=== PATIENT | female | born 1975 | race Caucasian/White ===

== ENCOUNTER 2017-09-16 13:07 | Emergency (ER) | payer OTHER ==
[~2017-09-16] VITALS: Ht 162.6 cm; Wt 104.3 kg
[~2017-09-16 13:07] MED LIST: ACYC800 PO; ALBU90OI61 INH; ALPR1 PO; AMLO10 PO; AMLO5 PO; AMOCLA500 PO; AMOCLA875 PO; AMOX500; ATEN100 PO; AXERT; AZIT250 PO; Ambien10 MG PO; BENZ100A PO; BISA10S PR; BUTONI; Baclofen10 MG PO; CARI350 PO; CLIN150; CLIN300 PO; CLON1 PO; CYCL10 PO; DIAZ10; DIAZ5; DIAZ5 PO; Dazidox10 MG; Diclofenac Sodi50 MG PO; Dicyclomine HCl20 MG PO; EXPECTORANT DM PO; FAMO20 PO; HYDACE10B PO; HYDACE5 PO; HYDACE5325 PO; HYDCHL25 PO; HYDRA25 PO; IBUP800; IBUP800 PO; Inderal40 MG PO; LABE100; LABE100 PO; LABE200 PO; LISI20 PO; LISI5 PO; LORA1 PO; LOSARTAN-HCTZ1 EAC1 PO; META800 PO; METCAR500 PO; MIGRANAL; MULVITMINE; Naprosyn500 MG PO; OXYACE5T; OXYACE5T PO; OXYC5 PO; PENVK500 PO; PROM25 PO; PROP10; PROP10 PO; Percocet 5-3251 EACH PO; Prednisone20 MG PO; RXPROM25 PO; Robaxin500 MG PO; Roxicodone5 MG PO; SERT50 PO; SOMA250 MG PO; STADOL; TOPI25; TOPI25 PO; TOPI50 PO; TRAM50 PO; Ultram50 MG PO; Xanax1 MG PO; Xanax2 MG PO; ZOLP10 PO; Zithromax250 MG PO; Zofran Odt4 MG SL; Zofran Odt8 MG PO; [UNRECOGNIZED DRUG - OTHER]
[2017-09-16 13:45] LABS: BASOPHILS ABSOLUTE AUTO 0.01 K/mm3 (0.00-0.23); BASOPHILS PERCENT AUTO 0 % (0-2); EOSINOPHILS ABSOLUTE AUTO 0.14 K/mm3 (0.00-0.68); EOSINOPHILS PERCENT AUTO 2 % (0-6); Hematocrit 41.5 % (33.0-51.0); Hemoglobin 14.1 g/dL (11.5-16.0); IMMATURE GRAN ABSOLUTE AUTO 0.01 K/mm3 (0.00-0.10); IMMATURE GRAN PERCENT AUTO 0 % (0-1); LYMPHOCYTES PERCENT AUTO 32 % (21-46); MONOCYTES PERCENT AUTO 7 % (4-13); Mean Corpuscular HGB 30.4 pg (26.0-34.0); Mean Corpuscular Volume 89 fL (80-100); NEUTROPHILS ABSOLUTE AUTO 4.46 K/mm3 (1.96-9.15); NEUTROPHILS PERCENT AUTO 59 % (41-73); Platelet Count 288 K/mm3 (150-400); RDW Coefficient Variation 12.3 % (11.7-14.2); RDW Standard Deviation 39.9 fL (35.1-46.3); Red Blood Cell Count 4.64 M/mm3 (3.80-5.20); White Blood Cell Count 7.52 K/mm3 (4.00-11.30)
[2017-09-16 13:58] LABS: Alanine Aminotransfer (ALT/SGP 25 U/L (12-78); Albumin, Blood 3.9 g/dL (3.4-5.0); Albumin/Globulin Ratio 0.9 (0.8-1.8); Alk Phos 70 U/L (50-136); Anion Gap 5 mmol/L (6-16); Aspartate Aminotrans (AST/SGOT 13 U/L (12-37); Bilirubin, Total 0.2 mg/dL (0.1-1.0); Blood Urea Nitrogen 16 mg/dL (8-24); Bun/Creatinine Ratio 22.4 (12.0-20.0); CO2, Blood 29 mmol/L (21-32); Calcium, Blood 8.8 mg/dL (8.5-10.1); Chloride, Blood 105 mmol/L (98-108); Creatinine, Blood 0.72 mg/dL (0.40-1.00); Globulin, Blood 4.2 g/dL (2.2-4.0); Glomerular Filtration Rate >60 (60-); Glucose, Blood 101 mg/dL (70-99); Potassium, Blood 3.6 mmol/L (3.5-5.5); Sodium, Blood 139 mmol/L (136-145); Total Protein, Blood 8.1 g/dL (6.4-8.2)
[2017-09-16 18:46] LABS: Source, Urine Clean Catch
[2017-09-16 18:49] LABS: Bilirubin, Urine Neg (Neg); Blood, Urine 1+ (Neg); Glucose Qualitative, Urine Neg (Neg); Ketones, Urine Neg (Neg); Leukocyte Esterase, Urine Neg (Neg); Nitrite, Urine Neg (Neg); Protein, Urine Neg (Neg); Urobilinogen, Urine NORM (Normal)
[2017-09-16 19:09] LABS: Appearance, Urine Hazy (Clear); Color, Urine Yellow (P-Yellow)
[2017-09-16 19:10] LABS: Red Blood Cells, Urine Not Seen /hpf (0-2); Squamous Epithelial Cells Many /hpf (Few); White Blood Cells, Urine 0-2 /hpf (0-5)
[2017-09-16 19:11] LABS: Bacteria Many /hpf
[2017-09-16] MEDS ORDERED: Macrobid 100 M100 MG PO (20:55)
[2017-12-10] MEDS ORDERED: Inderal40 MG PO (16:01)
[2017-12-10] MEDS ORDERED: LOSARTAN-HCTZ1 EAC1 PO (16:02)
[2017-12-10] MEDS ORDERED: Carisoprodol350 MG PO (16:05)
[2018-02-01] MEDS ORDERED: BENTYL (19:13)
[2018-02-01] MEDS ORDERED: SOMA250 MG (19:13)
[2018-02-01] MEDS ORDERED: Lisinopril2.5 MG (19:14)
[2018-02-01] MEDS ORDERED: Acetaminophen-1 EAC2 PO (19:15)
== END 2017-09-16 21:25 | disposition home or self-care (01) ==
LOC: ER 13:07
PROVIDERS: Emergency Medicine
DX: N39.0 Urinary tract infection, site not specified (principal); D25.9 Leiomyoma of uterus, unspecified; Z88.8 Allergy status to other drugs, medicaments and biological substances; Z79.899 Other long term (current) drug therapy; F41.9 Anxiety disorder, unspecified; I10 Essential (primary) hypertension; Z87.891 Personal history of nicotine dependence
CPT/HCPCS: 36415; 80053; 81000; 81001; 81025; 83690; 85025; 87086; 96374; 99283; J1885

== ENCOUNTER → 2017-10-29 | Outpatient (CLI) | payer OTHER ==
[~2017-10-29] MED LIST changes: +ABAT250V; +Acetaminophen-1 EAC2 PO; +BENTYL; +Carisoprodol350 MG PO; +Cipro500 MG PO; +Lisinopril2.5 MG; +Macrobid 100 M100 MG PO; +Percocet 10-321 EACH PO; +SOMA250 MG
[2017-10-30 09:38] LABS: Candida species (DNA Probe) Negative (NEGATIVE); G. vaginalis (DNA Probe) Negative (NEGATIVE); T. vaginalis (DNA Probe) Negative (NEGATIVE)
== END | disposition home or self-care (01) ==
LOC: LAB SHORT 10:24
PROVIDERS: Obstetrics & Gynecology
DX: N76.0 Acute vaginitis (principal)
CPT/HCPCS: 87480; 87510; 87660

== ENCOUNTER 2017-12-12 17:39 | Emergency (ER) | payer OTHER ==
[~2017-12-12] VITALS: Ht 162.6 cm; Wt 99.8 kg
[~2017-12-12 17:39] MED LIST changes: -ABAT250V; -Acetaminophen-1 EAC2 PO; -BENTYL; -Cipro500 MG PO; -Lisinopril2.5 MG; -Percocet 10-321 EACH PO; -SOMA250 MG
== END 2017-12-12 19:14 | disposition home or self-care (01) ==
LOC: ER 17:39
DX: J02.9 Acute pharyngitis, unspecified (principal); Z88.8 Allergy status to other drugs, medicaments and biological substances; Z79.899 Other long term (current) drug therapy; F41.9 Anxiety disorder, unspecified; G43.909 Migraine, unspecified, not intractable, without status migrainosus; I10 Essential (primary) hypertension; Z87.891 Personal history of nicotine dependence
CPT/HCPCS: 87081; 87430; 99283

== ENCOUNTER 2017-12-16 08:18 | Inpatient (IN) | payer OTHER ==
[~2017-12-16] VITALS: Ht 162.6 cm; Wt 102.1 kg
[2017-12-17 08:04] LABS: BASOPHILS ABSOLUTE AUTO 0.01 K/mm3 (0.00-0.23); BASOPHILS PERCENT AUTO 0 % (0-2); EOSINOPHILS PERCENT AUTO 0 % (0-6); Hematocrit 26.7 % (33.0-51.0); Hemoglobin 9.2 g/dL (11.5-16.0); IMMATURE GRAN ABSOLUTE AUTO 0.04 K/mm3 (0.00-0.10); IMMATURE GRAN PERCENT AUTO 0 % (0-1); LYMPHOCYTES ABSOLUTE AUTO 2.71 K/mm3 (0.84-5.20); LYMPHOCYTES PERCENT AUTO 24 % (21-46); MONOCYTES ABSOLUTE AUTO 0.73 K/mm3 (0.16-1.47); MONOCYTES PERCENT AUTO 7 % (4-13); Mean Corpuscular HGB 30.9 pg (26.0-34.0); Mean Corpuscular HGB Conc 34.5 g/dL (31.5-36.5); Mean Corpuscular Volume 90 fL (80-100); Mean Platelet Volume 9.8 fL (9.1-12.4); NEUTROPHILS ABSOLUTE AUTO 7.72 K/mm3 (1.96-9.15); NEUTROPHILS PERCENT AUTO 69 % (41-73); Platelet Count 223 K/mm3 (150-400); RDW Coefficient Variation 12.7 % (11.7-14.2); RDW Standard Deviation 41.5 fL (35.1-46.3); Red Blood Cell Count 2.98 M/mm3 (3.80-5.20); White Blood Cell Count 11.21 K/mm3 (4.00-11.30)
[2017-12-17 08:25] LABS: Anion Gap 8 mmol/L (6-16); Blood Urea Nitrogen 11 mg/dL (8-24); CO2, Blood 26 mmol/L (21-32); Calcium, Blood 8.1 mg/dL (8.5-10.1); Chloride, Blood 107 mmol/L (98-108); Creatinine, Blood 0.79 mg/dL (0.40-1.00); Glomerular Filtration Rate >60 (60-); Glucose, Blood 100 mg/dL (70-99); Potassium, Blood 3.8 mmol/L (3.5-5.5); Sodium, Blood 141 mmol/L (136-145)
[2017-12-19] MEDS ORDERED: Percocet 10-321 EACH PO (17:11)
[2017-12-19] MEDS ORDERED: IBUP800 PO (17:12)
[2017-12-19] MEDS ORDERED: ABAT250V (17:12)
== END 2017-12-19 18:30 | disposition home or self-care (01) | DRG 743 ==
LOC: ORSCMMR 08:18 → ORD 10:00 → ORSCMMR 10:00 → SURS 15:00 → ORSCMMR 15:00 → SURS 12-19 18:30
PROVIDERS: Obstetrics & Gynecology
PROC: 0UT9FZZ Resection of Uterus, Via Natural or Artificial Opening With Percutaneous Endoscopic Assistance (ICD-10-PCS; principal; 2017-12-16 10:00)
PROC: 0UT7FZZ Resection of Bilateral Fallopian Tubes, Via Natural or Artificial Opening With Percutaneous Endoscopic Assistance (ICD-10-PCS; 2017-12-16 10:00)
PROC: 0UT1FZZ Resection of Left Ovary, Via Natural or Artificial Opening With Percutaneous Endoscopic Assistance (ICD-10-PCS; 2017-12-16 10:00)
PROC: 0JQC0ZZ Repair Pelvic Region Subcutaneous Tissue and Fascia, Open Approach (ICD-10-PCS; 2017-12-16 10:00)
DX: N81.4 Uterovaginal prolapse, unspecified (principal); N81.11 Cystocele, midline; N81.6 Rectocele; N92.0 Excessive and frequent menstruation with regular cycle; N94.6 Dysmenorrhea, unspecified; I10 Essential (primary) hypertension; E66.9 Obesity, unspecified; Z68.38 Body mass index [BMI] 38.0-38.9, adult; G47.33 Obstructive sleep apnea (adult) (pediatric); G43.909 Migraine, unspecified, not intractable, without status migrainosus
CPT/HCPCS: 36415; 80048; 85025; 88307; J0171; J0690; J0697; J1100; J1170; J1885; J2250; J2370; J2405; J2710; J2765; J3010; J7030; J7120; Q9968

== ENCOUNTER 2017-12-21 06:13 | Emergency (ER) | payer OTHER ==
[~2017-12-21] VITALS: Ht 162.6 cm; Wt 102.1 kg
[~2017-12-21 06:13] MED LIST changes: +ABAT250V; +Percocet 10-321 EACH PO
[2017-12-21] MEDS ORDERED: Cipro500 MG PO (07:33)
== END 2017-12-21 08:10 | disposition home or self-care (01) ==
LOC: ER 06:13
DX: T83.091A Other mechanical complication of indwelling urethral catheter, initial encounter (principal); S37.29XA Other injury of bladder, initial encounter; F41.9 Anxiety disorder, unspecified; I10 Essential (primary) hypertension; Z88.8 Allergy status to other drugs, medicaments and biological substances; Z79.899 Other long term (current) drug therapy; Z87.891 Personal history of nicotine dependence; Z90.710 Acquired absence of both cervix and uterus; X58.XXXA Exposure to other specified factors, initial encounter

== ENCOUNTER 2017-12-23 09:33 | Emergency (ER) | payer OTHER ==
[~2017-12-23] VITALS: Ht 162.6 cm; Wt 102.1 kg
[~2017-12-23 09:33] MED LIST changes: +Cipro500 MG PO
[2017-12-23 12:30] LABS: Calcium, Ionized (POC) 1.15 mmol/L (1.10-1.46); Chloride (POC) 102 mmol/L (98-108); Creatinine (POC) 0.8 mg/dL (0.6-1.0); Glucose (ISTAT POC) 93 mg/dL (70-99); Hemoglobin (POC) 9.2 g/dL (12.0-16.0); Potassium (POC) 3.9 mmol/L (3.5-5.5); Sodium (POC) 139 mmol/L (135-148); Total CO2 (POC) 27 mmol/L (21-32)
[2017-12-23 12:31] LABS: Source, Urine Catheter
[2017-12-23 12:41] LABS: Bilirubin, Urine Neg (Neg); Blood, Urine 5+ (Neg); Glucose Qualitative, Urine Neg (Neg); Ketones, Urine Neg (Neg); Leukocyte Esterase, Urine 3+ (Neg); Nitrite, Urine Neg (Neg); Protein, Urine 2+ (Neg); Specific Gravity, Urine 1.005 (1.003-1.022); Urobilinogen, Urine NORM (Normal)
[2017-12-23 12:46] LABS: Appearance, Urine Clear (Clear); Color, Urine Yellow (P-Yellow)
[2017-12-23 12:47] LABS: Red Blood Cells, Urine 25-50 /hpf (0-2); White Blood Cells, Urine 25-50 /hpf (0-5)
[2017-12-23 12:48] LABS: Bacteria Few /hpf; Squamous Epithelial Cells Few /hpf (Few)
== END 2017-12-23 13:14 | disposition home or self-care (01) ==
LOC: ER 09:33
PROVIDERS: Emergency Medicine
DX: G89.18 Other acute postprocedural pain (principal); K92.2 Gastrointestinal hemorrhage, unspecified; F41.9 Anxiety disorder, unspecified; I10 Essential (primary) hypertension; Z88.8 Allergy status to other drugs, medicaments and biological substances; Z79.899 Other long term (current) drug therapy; Z79.2 Long term (current) use of antibiotics; Z87.891 Personal history of nicotine dependence
CPT/HCPCS: 36415; 76857; 80047; 81001; 85014; 87086; 99284

== ENCOUNTER 2018-05-29 15:46 | Emergency (ER) | payer OTHER ==
[~2018-05-29] VITALS: Ht 162.6 cm; Wt 102.1 kg
[~2018-05-29 15:46] MED LIST changes: +Acetaminophen-1 EAC2 PO; +BENTYL; +Lisinopril2.5 MG; +SOMA250 MG
[2018-05-29 16:24] LABS: Source, Urine Clean Catch
[2018-05-29 16:44] LABS: Appearance, Urine Clear (Clear); Bilirubin, Urine Neg (Neg); Blood, Urine Neg (Neg); Color, Urine Yellow (P-Yellow); Glucose Qualitative, Urine Neg (Neg); Ketones, Urine Neg (Neg); Leukocyte Esterase, Urine 1+ (Neg); Nitrite, Urine Neg (Neg); Protein, Urine Neg (Neg); Urobilinogen, Urine NORM (Normal); pH, Urine 6.5 (5.0-8.0)
[2018-05-29 16:59] LABS: Bacteria Few /hpf; Red Blood Cells, Urine Not Seen /hpf (0-2); Squamous Epithelial Cells Few /hpf (Few); White Blood Cells, Urine Not Seen /hpf (0-5)
== END 2018-05-29 17:19 | disposition home or self-care (01) ==
LOC: ER 15:46
PROVIDERS: Emergency Medicine
DX: K59.00 Constipation, unspecified (principal); F41.9 Anxiety disorder, unspecified; I10 Essential (primary) hypertension; Z87.891 Personal history of nicotine dependence; Z79.899 Other long term (current) drug therapy
CPT/HCPCS: 74022; 81001; 99284-25

== ENCOUNTER → 2018-07-17 | Outpatient (CLI) | payer OTHER | END | disposition home or self-care (01) | LOC: LAB EV 10:51 → LAB SHORT 10:51 | DX: J02.9 Acute pharyngitis, unspecified (principal) | CPT/HCPCS: 87070 ==

== ENCOUNTER 2018-09-24 09:44 | Day surgery (SDC) | payer OTHER ==
[~2018-09-24] VITALS: Ht 162.6 cm; Wt 105.7 kg
[~2018-09-24 09:44] MED LIST changes: +LINZESS290 MCG PO; +MISO200 PO; +SOMA350 MG
--- NOTE | 2018-09-24 12:24 | NUR ---
09/24/[address] NOTIFIED OF [facility]
== END 2018-09-24 13:05 | disposition home or self-care (01) ==
LOC: ORSCSDS 09:44
PROVIDERS: Internal Medicine Gastroenterology
PROC: 0DB68ZX Excision of Stomach, Via Natural or Artificial Opening Endoscopic, Diagnostic (ICD-10-PCS; principal; 2018-09-24 11:30)
PROC: 0DB58ZX Excision of Esophagus, Via Natural or Artificial Opening Endoscopic, Diagnostic (ICD-10-PCS; principal; 2018-09-24 11:30)
DX: R10.13 Epigastric pain (principal); K59.00 Constipation, unspecified; K20.9 Esophagitis, unspecified; K29.80 Duodenitis without bleeding; K25.9 Gastric ulcer, unspecified as acute or chronic, without hemorrhage or perforation; I10 Essential (primary) hypertension; E66.9 Obesity, unspecified; R73.03 Prediabetes; Z79.899 Other long term (current) drug therapy
CPT/HCPCS: 88305; 88342; J2250; J7120

== ENCOUNTER 2018-10-08 19:05 | Emergency (ER) | payer OTHER ==
[~2018-10-08] VITALS: Ht 162.6 cm; Wt 108.0 kg
[2018-10-08 20:06] LABS: BASOPHILS ABSOLUTE AUTO 0.04 K/mm3 (0.00-0.23); BASOPHILS PERCENT AUTO 0 % (0-2); EOSINOPHILS ABSOLUTE AUTO 0.09 K/mm3 (0.00-0.68); EOSINOPHILS PERCENT AUTO 1 % (0-6); Hematocrit 41.3 % (33.0-51.0); Hemoglobin 13.8 g/dL (11.5-16.0); IMMATURE GRAN ABSOLUTE AUTO 0.03 K/mm3 (0.00-0.10); IMMATURE GRAN PERCENT AUTO 0 % (0-1); LYMPHOCYTES PERCENT AUTO 32 % (21-46); MONOCYTES ABSOLUTE AUTO 0.57 K/mm3 (0.16-1.47); MONOCYTES PERCENT AUTO 6 % (4-13); Mean Corpuscular HGB 30.4 pg (26.0-34.0); Mean Corpuscular HGB Conc 33.4 g/dL (31.5-36.5); Mean Corpuscular Volume 91 fL (80-100); NEUTROPHILS ABSOLUTE AUTO 6.22 K/mm3 (1.96-9.15); NEUTROPHILS PERCENT AUTO 61 % (41-73); Platelet Count 316 K/mm3 (150-400); RDW Coefficient Variation 12.3 % (11.7-14.2); RDW Standard Deviation 41.1 fL (35.1-46.3); Red Blood Cell Count 4.54 M/mm3 (3.80-5.20); White Blood Cell Count 10.15 K/mm3 (4.00-11.30)
[2018-10-08 20:24] LABS: Alanine Aminotransfer (ALT/SGP 28 U/L (12-78); Alk Phos 68 U/L (50-136); Anion Gap 7 mmol/L (6-16); Aspartate Aminotrans (AST/SGOT 20 U/L (12-37); Bilirubin, Total 0.5 mg/dL (0.1-1.0); Blood Urea Nitrogen 12 mg/dL (8-24); Bun/Creatinine Ratio 14.3 (12.0-20.0); CO2, Blood 26 mmol/L (21-32); Calcium, Blood 8.5 mg/dL (8.5-10.1); Chloride, Blood 103 mmol/L (98-108); Creatinine, Blood 0.84 mg/dL (0.40-1.00); Globulin, Blood 4.1 g/dL (2.2-4.0); Glomerular Filtration Rate >60 (60-); Glucose, Blood 87 mg/dL (70-99); Potassium, Blood 3.8 mmol/L (3.5-5.5); Sodium, Blood 136 mmol/L (136-145); Total Protein, Blood 8.1 g/dL (6.4-8.2); Troponin I <0.015 ng/mL (0.000-0.040)
== END 2018-10-08 22:05 | disposition home or self-care (01) ==
LOC: ER 19:05
PROVIDERS: Emergency Medicine
DX: R07.89 Other chest pain (principal); Z88.8 Allergy status to other drugs, medicaments and biological substances; Z79.899 Other long term (current) drug therapy; F41.9 Anxiety disorder, unspecified; I10 Essential (primary) hypertension; F17.200 Nicotine dependence, unspecified, uncomplicated
CPT/HCPCS: 36415; 80053; 83690; 83880; 84484; 85025; 93005; 93010; 96374; 96375; 96376; 99285-25; J2405; J3010

== ENCOUNTER 2018-12-10 17:31 | Emergency (ER) | payer OTHER ==
[~2018-12-10] VITALS: Ht 162.6 cm; Wt 102.1 kg
[2018-12-10] MEDS ORDERED: BACL10 PO (17:57)
[2018-12-10] MEDS ORDERED: GABA600 PO (17:57)
[2018-12-10] MEDS ORDERED: ONDA4ODT MM (18:04)
== END 2018-12-10 18:15 | disposition home or self-care (01) ==
LOC: ER 17:31
DX: S00.462A Insect bite (nonvenomous) of left ear, initial encounter (principal); Z88.8 Allergy status to other drugs, medicaments and biological substances; Z79.899 Other long term (current) drug therapy; F41.9 Anxiety disorder, unspecified; I10 Essential (primary) hypertension; Z87.891 Personal history of nicotine dependence
CPT/HCPCS: 99282

== ENCOUNTER 2019-03-31 20:02 | Emergency (ER) | payer OTHER ==
[~2019-03-31] VITALS: Ht 162.6 cm; Wt 104.8 kg
[~2019-03-31 20:02] MED LIST changes: +BACL10 PO; +GABA600 PO; +ONDA4ODT MM
[2019-03-31] MEDS ORDERED: LISI20 PO (20:41)
[2019-03-31] MEDS ORDERED: AMIT10 (20:42)
[2019-03-31 20:52] LABS: BASOPHILS ABSOLUTE AUTO 0.06 K/mm3 (0.00-0.23); BASOPHILS PERCENT AUTO 1 % (0-2); EOSINOPHILS ABSOLUTE AUTO 0.09 K/mm3 (0.00-0.68); EOSINOPHILS PERCENT AUTO 1 % (0-6); Hematocrit 42.3 % (33.0-51.0); Hemoglobin 13.9 g/dL (11.5-16.0); IMMATURE GRAN ABSOLUTE AUTO 0.01 K/mm3 (0.00-0.10); IMMATURE GRAN PERCENT AUTO 0 % (0-1); LYMPHOCYTES ABSOLUTE AUTO 3.22 K/mm3 (0.84-5.20); LYMPHOCYTES PERCENT AUTO 38 % (21-46); MONOCYTES ABSOLUTE AUTO 0.59 K/mm3 (0.16-1.47); MONOCYTES PERCENT AUTO 7 % (4-13); Mean Corpuscular HGB 29.8 pg (26.0-34.0); Mean Corpuscular HGB Conc 32.9 g/dL (31.5-36.5); Mean Corpuscular Volume 91 fL (80-100); NEUTROPHILS ABSOLUTE AUTO 4.49 K/mm3 (1.96-9.15); NEUTROPHILS PERCENT AUTO 53 % (41-73); Platelet Count 316 K/mm3 (150-400); RDW Standard Deviation 39.6 fL (35.1-46.3); Red Blood Cell Count 4.67 M/mm3 (3.80-5.20); White Blood Cell Count 8.46 K/mm3 (4.00-11.30)
[2019-03-31 21:10] LABS: Alanine Aminotransfer (ALT/SGP 26 U/L (12-78); Albumin, Blood 4.4 g/dL (3.4-5.0); Albumin/Globulin Ratio 1.1 (0.8-1.8); Alk Phos 61 U/L (50-136); Anion Gap 6 mmol/L (6-16); Aspartate Aminotrans (AST/SGOT 15 U/L (12-37); Bilirubin, Total 0.5 mg/dL (0.1-1.0); Blood Urea Nitrogen 16 mg/dL (8-24); Bun/Creatinine Ratio 22.8 (12.0-20.0); CO2, Blood 26 mmol/L (21-32); Calcium, Blood 9.2 mg/dL (8.5-10.1); Chloride, Blood 104 mmol/L (98-108); Globulin, Blood 3.9 g/dL (2.2-4.0); Glomerular Filtration Rate >60 (60-); Glucose, Blood 91 mg/dL (70-99); Potassium, Blood 3.6 mmol/L (3.5-5.5); Sodium, Blood 136 mmol/L (136-145); Total Protein, Blood 8.3 g/dL (6.4-8.2)
[2019-03-31] MEDS ORDERED: PROM25 PO (21:31)
[2019-03-31] MEDS ORDERED: Medi-Meclizine25 MG PO (21:31)
== END 2019-03-31 21:40 | disposition home or self-care (01) ==
LOC: ER 20:02
PROVIDERS: Physician Assistant
DX: R42 Dizziness and giddiness (principal); F41.9 Anxiety disorder, unspecified; I10 Essential (primary) hypertension; G43.909 Migraine, unspecified, not intractable, without status migrainosus; Z87.891 Personal history of nicotine dependence
CPT/HCPCS: 36415; 80053; 85025; 93005; 93010; 99284-25

== ENCOUNTER 2019-10-02 18:45 | Emergency (ER) | payer OTHER ==
[~2019-10-02] VITALS: Ht 165.1 cm; Wt 108.9 kg
[~2019-10-02 18:45] MED LIST changes: +AMIT10; +Medi-Meclizine25 MG PO
[2019-10-02 20:37] LABS: BASOPHILS ABSOLUTE AUTO 0.05 K/mm3 (0.00-0.23); BASOPHILS PERCENT AUTO 1 % (0-2); EOSINOPHILS ABSOLUTE AUTO 0.08 K/mm3 (0.00-0.68); EOSINOPHILS PERCENT AUTO 1 % (0-6); Hematocrit 42.7 % (33.0-51.0); Hemoglobin 14.3 g/dL (11.5-16.0); IMMATURE GRAN ABSOLUTE AUTO 0.02 K/mm3 (0.00-0.10); IMMATURE GRAN PERCENT AUTO 0 % (0-1); LYMPHOCYTES ABSOLUTE AUTO 2.29 K/mm3 (0.84-5.20); LYMPHOCYTES PERCENT AUTO 25 % (21-46); MONOCYTES ABSOLUTE AUTO 0.52 K/mm3 (0.16-1.47); MONOCYTES PERCENT AUTO 6 % (4-13); Mean Corpuscular HGB 30.8 pg (26.0-34.0); Mean Corpuscular HGB Conc 33.5 g/dL (31.5-36.5); Mean Corpuscular Volume 92 fL (80-100); Mean Platelet Volume 9.8 fL (9.1-12.4); NEUTROPHILS ABSOLUTE AUTO 6.06 K/mm3 (1.96-9.15); NEUTROPHILS PERCENT AUTO 67 % (41-73); Platelet Count 283 K/mm3 (150-400); RDW Coefficient Variation 12.1 % (11.7-14.2); RDW Standard Deviation 41.1 fL (35.1-46.3); Red Blood Cell Count 4.65 M/mm3 (3.80-5.20); White Blood Cell Count 9.02 K/mm3 (4.00-11.30)
[2019-10-02 20:57] LABS: Alanine Aminotransfer (ALT/SGP 23 U/L (12-78); Albumin, Blood 4.2 g/dL (3.4-5.0); Alk Phos 68 U/L (50-136); Anion Gap 5 mmol/L (6-16); Aspartate Aminotrans (AST/SGOT 14 U/L (12-37); Bilirubin, Total 0.3 mg/dL (0.1-1.0); Blood Urea Nitrogen 11 mg/dL (8-24); Bun/Creatinine Ratio 15.9 (12.0-20.0); CO2, Blood 28 mmol/L (21-32); Chloride, Blood 104 mmol/L (98-108); Creatinine, Blood 0.69 mg/dL (0.40-1.00); Glomerular Filtration Rate >60 (60-); Glucose, Blood 103 mg/dL (70-99); Sodium, Blood 137 mmol/L (136-145); Total Protein, Blood 8.2 g/dL (6.4-8.2)
== END 2019-10-02 23:54 | disposition home or self-care (01) ==
LOC: ER 18:45
PROVIDERS: Physician Assistant
DX: R51 Headache (principal); F41.9 Anxiety disorder, unspecified; I10 Essential (primary) hypertension; G89.29 Other chronic pain; M54.2 Cervicalgia; F17.200 Nicotine dependence, unspecified, uncomplicated; Z88.8 Allergy status to other drugs, medicaments and biological substances
CPT/HCPCS: 36415; 80053; 85025; 96361; 96374; 96375; 99283-25; J1100; J1200; J1885; J2550; J7030

== ENCOUNTER 2020-02-01 23:28 | Emergency (ER) | payer OTHER ==
[2020-02-01] MEDS ORDERED: PROP10 (23:46)
[2020-02-01] MEDS ORDERED: AMLO5 (23:47)
[2020-02-01 23:52] LABS: Extra Purple Top Tube Done
[2020-02-01 23:56] LABS: BASOPHILS ABSOLUTE AUTO 0.04 K/mm3 (0.00-0.23); BASOPHILS PERCENT AUTO 1 % (0-2); EOSINOPHILS PERCENT AUTO 1 % (0-6); Hematocrit 38.2 % (33.0-51.0); Hemoglobin 12.5 g/dL (11.5-16.0); IMMATURE GRAN ABSOLUTE AUTO 0.01 K/mm3 (0.00-0.10); IMMATURE GRAN PERCENT AUTO 0 % (0-1); LYMPHOCYTES ABSOLUTE AUTO 3.43 K/mm3 (0.84-5.20); LYMPHOCYTES PERCENT AUTO 43 % (21-46); MONOCYTES ABSOLUTE AUTO 0.56 K/mm3 (0.16-1.47); MONOCYTES PERCENT AUTO 7 % (4-13); Mean Corpuscular HGB 29.8 pg (26.0-34.0); Mean Corpuscular HGB Conc 32.7 g/dL (31.5-36.5); Mean Corpuscular Volume 91 fL (80-100); Mean Platelet Volume 10.5 fL (9.1-12.4); NEUTROPHILS ABSOLUTE AUTO 3.87 K/mm3 (1.96-9.15); NEUTROPHILS PERCENT AUTO 48 % (41-73); Platelet Count 269 K/mm3 (150-400); RDW Coefficient Variation 11.9 % (11.7-14.2); RDW Standard Deviation 39.5 fL (35.1-46.3); White Blood Cell Count 8.01 K/mm3 (4.00-11.30)
[2020-02-02 00:13] LABS: Anion Gap 9 mmol/L (6-16); Blood Urea Nitrogen 7 mg/dL (8-24); Bun/Creatinine Ratio 9.8 (12.0-20.0); CO2, Blood 23 mmol/L (21-32); Calcium, Blood 8.4 mg/dL (8.5-10.1); Chloride, Blood 107 mmol/L (98-108); Creatinine, Blood 0.71 mg/dL (0.40-1.00); Glomerular Filtration Rate >60 (60-); Glucose, Blood 90 mg/dL (70-99); Potassium, Blood 3.5 mmol/L (3.5-5.5); Sodium, Blood 139 mmol/L (136-145); Troponin I <0.015 ng/mL (0.000-0.040)
== END 2020-02-02 01:39 | disposition left against medical advice (07) ==
PROVIDERS: Physician Assistant
DX: R07.9 Chest pain, unspecified (principal); I10 Essential (primary) hypertension; F41.9 Anxiety disorder, unspecified; Z53.21 Procedure and treatment not carried out due to patient leaving prior to being seen by health care provider; Z88.8 Allergy status to other drugs, medicaments and biological substances; Z79.899 Other long term (current) drug therapy; Z87.891 Personal history of nicotine dependence

== ENCOUNTER 2022-11-06 15:20 | Emergency (ER) | payer OTHER ==
[~2022-11-06] VITALS: Ht 160 cm; Wt 79.4 kg
[~2022-11-06 15:20] MED LIST changes: +ALPR.5; +AMLO5; +CEPH500 PO; +LOSA25; +VICODIN HP 10-1 EAC1
[2022-11-06 16:21] LABS: BASOPHILS ABSOLUTE AUTO 0.06 K/mm3 (0.00-0.23); BASOPHILS PERCENT AUTO 1 % (0-2); EOSINOPHILS PERCENT AUTO 3 % (0-6); Hematocrit 40.1 % (33.0-51.0); Hemoglobin 13.3 g/dL (11.5-16.0); IMMATURE GRAN ABSOLUTE AUTO 0.01 K/mm3 (0.00-0.10); IMMATURE GRAN PERCENT AUTO 0 % (0-1); LYMPHOCYTES ABSOLUTE AUTO 2.54 K/mm3 (0.84-5.20); LYMPHOCYTES PERCENT AUTO 35 % (21-46); MONOCYTES ABSOLUTE AUTO 0.52 K/mm3 (0.16-1.47); MONOCYTES PERCENT AUTO 7 % (4-13); Mean Corpuscular HGB 29.7 pg (26.0-34.0); Mean Corpuscular HGB Conc 33.2 g/dL (31.5-36.5); Mean Corpuscular Volume 90 fL (80-100); Mean Platelet Volume 9.7 fL (9.1-12.4); NEUTROPHILS ABSOLUTE AUTO 4.04 K/mm3 (1.96-9.15); NEUTROPHILS PERCENT AUTO 55 % (41-73); Platelet Count 244 K/mm3 (150-400); RDW Coefficient Variation 12.3 % (11.7-14.2); RDW Standard Deviation 40.5 fL (35.1-46.3); Red Blood Cell Count 4.48 M/mm3 (3.80-5.20); White Blood Cell Count 7.37 K/mm3 (4.00-11.30)
[2022-11-06 16:45] LABS: Source, Urine Clean Catch
[2022-11-06 16:51] LABS: Albumin, Blood 4.1 g/dL (3.4-5.0); Albumin/Globulin Ratio 1.2 (0.8-1.8); Bilirubin, Total 0.3 mg/dL (0.1-1.0); Bun/Creatinine Ratio 34.1 (12.0-20.0); Calcium, Blood 9.1 mg/dL (8.5-10.1); Creatinine, Blood 0.53 mg/dL (0.40-1.00); Globulin, Blood 3.3 g/dL (2.2-4.0); Potassium, Blood 4.2 mmol/L (3.5-5.5); Total Protein, Blood 7.4 g/dL (6.4-8.2)
[2022-11-06 16:56] LABS: Appearance, Urine Clear (Clear); Bilirubin, Urine Neg (Neg); Blood, Urine 1+ (Neg); Color, Urine Yellow (P-Yellow); Glucose Qualitative, Urine Neg (Neg); Ketones, Urine Neg (Neg); Leukocyte Esterase, Urine Neg (Neg); Nitrite, Urine Neg (Neg); Protein, Urine Neg (Neg); Specific Gravity, Urine 1.025 (1.003-1.022); Urobilinogen, Urine NORM (Normal)
[2022-11-06 17:02] LABS: Bacteria Rare /hpf; Squamous Epithelial Cells Few /hpf (Few); White Blood Cells, Urine 0-2 /hpf (0-5)
== END 2022-11-06 18:38 | disposition home or self-care (01) ==
LOC: ER 15:20
PROVIDERS: Student in an Organized Health Care Education/Training Program
DX: K59.00 Constipation, unspecified (principal); I10 Essential (primary) hypertension; G43.909 Migraine, unspecified, not intractable, without status migrainosus; Z79.899 Other long term (current) drug therapy; Z88.8 Allergy status to other drugs, medicaments and biological substances; Z87.891 Personal history of nicotine dependence
CPT/HCPCS: 36415; 74018; 80053; 81001; 85025; 99284-25